=== PATIENT | female | born 1990 | race Caucasian/White ===

== ENCOUNTER → 2019-03-09 14:09 | Outpatient (CLI) | payer MEDICAID, SELFPAY ==
[2019-03-09 21:06] LABS: Chlamydia Trachomatis by PCR Negative (Negative); Neisserai gonorrhoeae by PCR Negative (Negative); Probe Check PASS; Sample Adequacy Control PASS; Specimen Processing Control PASS
[2019-03-14 15:22] LABS: HPV Reflexed? NOT INDICATED
== END ==
PROVIDERS: Visit Provider Obstetrics & Gynecology
DX: Z12.4 Encounter for screening for malignant neoplasm of cervix (principal); Z11.3 Encounter for screening for infections with a predominantly sexual mode of transmission
CPT/HCPCS: 87491; 87591; 87624; 88175; G0145

== ENCOUNTER 2020-06-30 17:39 | Emergency (ER) | payer MEDICAID, SELFPAY ==
[2020-06-30 17:40] VITALS: BP 152/95; PULSE 89; RESP 15; TEMP 36.6; O2SAT 98; BMI 36.4
[2020-06-30 18:42] VITALS: RESP 14
--- NOTE | 2020-06-30 18:56 | ED.VIS.GEN ---
History of Present Illness Chief Complaint: Laceration Informant: Patient Narrative: 1-year-old female presents for evaluation of a laceration to the third digit of the right hand. This was a knife on a hutton chain. States last tetanus was 2 years ago. Patient denies paresthesias. Patient has no loss of function of the digit. Past Medical History - Allergies and Home Meds Allergies/Adverse Reactions: Allergies clindamycin Allergy (Verified 06/30/20 17:43) Hives Primary Care Physician: Ken Dixon MD [Primary Care Provider] - Smoking Status: Never smoker Physical Exam Vital Signs/Narrative: Vital Signs Temp Pulse Resp BP Pulse Ox 06/30/20 18:42 14 06/30/20 17:40 97.9 F 89 15 152/95 H 98 ED Disposition - Plan for ED Patient: Disposition: Home or Assisted Living Instructions: ED Laceration Hand Referrals: Ken Dixon MD [Primary Care Provider] -
== END 2020-06-30 20:41 | disposition home or self-care (01) ==
PROVIDERS: Emergency Provider Student in an Organized Health Care Education/Training Program; PCP Family Medicine
DX: S61.212A Laceration without foreign body of right middle finger without damage to nail, initial encounter (principal); X58.XXXA Exposure to other specified factors, initial encounter
CPT/HCPCS: 99283

== ENCOUNTER → 2024-03-16 | Outpatient (CLI) | payer MEDICAID, SELFPAY ==
--- NOTE | 2024-03-16 16:20 | MRI_ITS ---
We are attempting to reach an attending provider to discuss findings. An addendum with communication details will be sent when the communication is complete. STUDY: MR Knee W/O Contrast 03/18/2024 4:17 PM REASON FOR EXAM: Female, 33 years old. assess for MCL sprain or MM tear TECHNIQUE: Standardized fat and water weighted pulse sequences were obtained in all 3 orthogonal planes. RIGHT COMPARISON: xr 4.1.24 FINDINGS: Normal medial meniscus. Normal hyaline cartilage of the medial femorotibial compartment. Abnormal serpiginous T2 signal in the distal comparison femur. Abnormal serpiginous T1 signal along the proximal tibia. The femoral and tibial signal abnormalities have the appearance of a geographic appearance. Normal medial collateral ligamentous complex (MCL). Normal distal semimembranosus, gracilis and semitendinosus tendons. Normal lateral meniscus. Normal hyaline cartilage of the lateral femorotibial compartment. Normal proximal tibiofibular articulation. Normal lateral collateral (fibular) ligament. Normal popliteus tendon. Normal biceps femoris tendon. Normal anterior cruciate ligament (ACL). Normal posterior cruciate ligament (PCL). Normal congruent patellofemoral articulation. Normal hyaline cartilage of the patellofemoral compartment. Normal medial and lateral patellar retinaculum. Normal quadriceps tendon. Normal patellar tendon. Normal Hoffa''s fat pad. There is no joint effusion. The soft tissues are unremarkable. The otherwise visualized osseous structures are unremarkable. 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 Electronically Signed: Chiki Mendoza MD at 16:23 EDT ,
== END | disposition home or self-care (01) ==
LOC: MRI 16:13
PROVIDERS: PCP Family Medicine; Referring Provider Orthopaedic Surgery Sports Medicine; Visit Provider Orthopaedic Surgery Sports Medicine
DX: M25.561 Pain in right knee (principal)
CPT/HCPCS: 73721

== ENCOUNTER 2024-04-16 11:00 | Outpatient (RCR) | payer MEDICAID, SELFPAY ==
--- NOTE | 2024-03-08 12:05 | HP.PTEVAL_ITS ---
Patient's Visit Information Visit Information Visit Information: FLAQUITO LAND is a 33 year old F referred to Physical Therapy by Dr. Vishal Caal MD with a diagnosis of R knee pain. Date of Evaluation: 03/08/24 Physical Therapist: Kip Haynes DPT Visit Plan Frequency: 2x /Week Duration: 4 Weeks Plan: 1) Start with quad strengthening isometrics progressing to concentric. Will need to start in [place] due to R foot being non WBing. 2) R knee ROM, HS stretching. *Pt. does have a R foot fracture where she is NWBing. She also has a diagnosis of conversion disorder which seems to effecting BLEs resulting in weakness, pt. has marked DF weakness. Subjective Subjective: Pt. is here today for her initial evaluation with diagnosis of R knee pain. Pt. has a fairly length recent PMH. Pt. was recently diagnosis of conversion disorder after having increased BLE weakness causing difficulty walking. She also recently fell in middle of January resulting in a R forefoot fracture. She was in a cast, but recently moved to a CAM bood for the last 3 weeks. She is to be limited WBing on her R foot per patient from podiatry. She also fell a few days before that resulting in a medial R knee injury. She reports high anxiety, and stress. She was heavily drinking to cope with this. She has recently stopped drinking. She reports that her R knee is bothering a lot and is awaiting an MRI. She is also to have a repeat Xray of her R foot in early March. 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 She reports 18K steps per day on average. She is still having issues with ankle strength in BLEs. Pt. is hopeful to get back to work and recreational activities without limitations. Pain R knee: Pain Intensity (Out of 10): 0 Pain Intensity Range: 5 Comment: 5/10 with movement Objective Objective: POSTURE: Pt. has slight flexed posture. Uses FWW for stability and to off load RLE. PALPATION: Pt. has tenderness along R knee medial joint line and along MCL region. No as much pain along popliteal region. NEURO: normal sensation and normal DTR of BLEs. ROM: R knee: 0-3-111deg, PROM: 0-0-117deg. Pt. does have difficulty with B ankle DF ROM, tightness noted in B calves. MMT: LLE: ankle DF 5#, PF 28#, knee: ext 31.2#, flexion 26.0#; hip: flexion 26.5# RLE: ankle: DF 3#, PF 18#; knee: ext 29.3#, flexion 20.9#; hip: flexion 15.7#, abd 13.8# GAIT: Pt. ambulates with FWW. Pt. attempted to reduce WBing through RLE, but still have marked WBing. Pt. does have difficulty with good initial contact on RLE, LLE unable to see due to CAM boot. Pt. has difficulty with DF during swing phase resulting in exaggerated hip flexion bilaterally. sit to stand: good mechanics. Bed mobility: good mechanics. Special Tests R Knee Alma - Meniscus: Positive R Knee Anterior Drawer - ACL: Negative Balance/Special Test Scores Lower Extremity Functional Score: 28 Goals Goal 1:: LTG: Pt. to be I with HEP for quad strengthening and R knee ROM. Goal Time Frame: 2-4 Weeks Goal 2:: LTG: Pt. to be able to ambulate without increase in R knee pain. Goal Time Frame: 4-6 Weeks Goal 3:: STG: Pt. to have increased R knee ROM to 0-0-130deg without increase in R knee pain. Goal Time Frame: 2 Weeks Goal 4:: STG: Pt. to ambulate with normal gait pattern without increase in symptoms. Goal Time Frame: 2-4 Weeks Rehabilitation Potential Physical Therapy Diagnosis: Pt. has signs and symptoms consistent with R knee pain. Pt. has a few things going on right now stemming from R foot fracture, R medial knee pain and conversion disorder diagnosis. She has marked R knee ROM loss secondary to pain at medial knee. She has some weakness, but not severe. She is currently non WBing on her R foot limiting some of our R LE strengthening. I would like her to work in PT on R quad strengthening, R knee ROM and decreasing symptoms. Rehabilitation Potential: Good Anticipated Interventions Patient/Client Instruction: Educate patient on: Condition, Plan of Care, Risk Factors and Benefits of Fitness Program For the Purpose of:: To improve decision making, To facilitate caregiver knowledge, To improve self management, To prevent re-injury and To improve ability to perform tasks related to life management Therapeutic Exercise to Include: Strength training, Power training, Coordination, Flexibilty training, Passive ROM and Active ROM For the Purpose of:: To decrease pain, To increase ROM, To improve nutrient delivery to tissue, To increase oxygenation perfusion, To improve muscle performance and motor function, To improve ability to perform ADL's, To increase tolerance to activity/condition/position, To improve performance and inde pendence with ADL's, To decrease level of supervision to perform tasks, To improve health of tissue, To decrease soft tissue restriction and To increase flexibility/ROM Text: Thank you for the opportunity to evaluate your patient. For Medicare and Medicare HMO plans, please review the plan of care and approve it. It will need to be FAXED BACK to us at [phone] for Medicare purposes. For Medicare only, by signing this I certify the plan of care. Please let me know if there are questions or concerns regarding this plan of ca re. Physician Signature: Date:
== END 2024-04-16 19:00 | disposition home or self-care (01) ==
LOC: PT 11:00
PROVIDERS: PCP Family Medicine; Referring Provider Orthopaedic Surgery Sports Medicine; Visit Provider Orthopaedic Surgery Sports Medicine
DX: M25.561 Pain in right knee (principal)
CPT/HCPCS: 97110; 97161

== ENCOUNTER 2025-08-01 16:34 | Emergency (ER) | payer MEDICAID, SELFPAY ==
[2025-08-01 16:34] VITALS: BP 135/77; PULSE 63; RESP 16; TEMP 36.8; O2SAT 100; BMI 38.7
--- NOTE | 2025-08-01 16:51 | EX.ED.DYSGE1 ---
HPI History of Present Illness Chief Complaint: Dizziness Detail of Chief Complaint: Acute vertigo Informant: patient Onset/Context/Timing Onset: Today and Hours Context: Sudden Onset Timing: Intermittent Quality: Patient stated her vision was off and she was spinning when she tilted her Location: [facility] office Current Severity: Mild (Feels nausea) Maximum Severity: Severe Worsened by: Tilting head back Relieved by: Remaining still Associated Symptoms Associated Symptoms: Nausea and vomiting x 1 Narrative Narrative: Patient is a 34-year-old G2, P1 Ab0 female who presents with abrupt onset of vertigo. This occurred when she tilts her head back after drinking water. She denied double vision blurred vision loss of vision. Denies ringing or ears or decreased hearing. She denies trouble speech or swallowing. She denies paresthesia, anesthesia or motor weakness. She does endorse frequency. She is , 21 weeks. She denies problems with balance or coordination. Prior similar symptoms: No Recent Illness/Hospitalization: No PFSH [facility] Medical History Avascular necrosis Right knee pain Home Medications ?Medication ?Instructions ?Recorded ?Last Taken ?Type amlodipine 2.5 mg tablet 2.5 mg PO DAILY 02/28/24 Unknown History calcium carbonate 260 mg PO DAILY 02/28/24 Unknown History cholecalciferol (vitamin D3) 10 10 mcg PO DAILY 02/28/24 Unknown History mcg (400 unit) capsule folic acid 1 mg tablet 1 mg PO DAILY 02/28/24 Unknown History gabapentin 100 mg capsule 100 mg PO DAILY 02/28/24 Unknown History thiamine HCl (vitamin B1) 50 mg 50 mg PO DAILY 02/28/24 Unknown History tablet diazepam 2 mg tablet (Valium) 2 mg PO TID 3 days #7 tabs 08/01/25 Unknown Rx Allergy/AdvReac Type Severity Reaction Status Date / Time clindamycin Allergy Hives Verified 08/28/24 10:53 lisinopril Allergy cough Verified 08/01/25 16:36 Social History household members: children Smoking Status: Former smoker alcohol intake: never ROS ROS ED Constitutional Constitutional ED: Denies chills, fever(s), subjective or sweats Eyes Eyes: Reports change in vision bilateral (My vision is off.); Denies blurry vision or diplopia ENT ENT ED: Reports other Details: Denies tinnitus. ; Denies ear pain, rhinorrhea or sore throat Cardiovascular Cardiovascular: Denies chest pain or palpitations Respiratory/Chest Respiratory/Chest: Denies cough, dyspnea or dyspnea on exertion Gastrointestinal Gastrointestinal: Reports nausea and vomiting; Denies abdominal pain or diarrhea Genitourinary Genitourinary ED: Reports urinary frequency; Denies dysuria or hematuria Musculoskeletal Musculoskeletal: Denies arthralgias or myalgias Integumentary Denies rash Neurologic Neurologic: Denies headache(s), paresthesias or weakness Endocrine Endocrinology: Denies cold intolerance or heat intolerance Hematologic/Lymphatic Hematologic/Lymphatic: Reports systems reviewed and no addt'l complaints, except as documented EXAM Physical Exam Const Vital Signs: 08/01/25 16:34 08/01/25 18:58 Temperature 98.2 F 98.2 F Temperature Source Oral Pulse Rate 63 84 Respiratory Rate 16 18 Blood Pressure 135/77 H 130/77 H Blood Pressure Mean 96 94 Pulse Ox 100 98 Oxygen Delivery Method Room Air Positive well nourished General Appearance ED: NAD HEENT Reports moist mucous membranes HEENT Narrative: Head is atraumatic normocephalic. Ears normal. Nares patent. Posterior pharynx normal. Eyes PERRL and EOMs intact bilaterally General Eye ED: Negative for pale conjunctiva or scleral icterus Neck no lymphadenopathy, supple and no JVD Resp normal respiratory effort Cardio regular rate and regular rhythm GI normal to inspection, nondistended, normoactive bowel sounds and non-tender; Negative for non-distended or hepatosplenomegaly GI Narrative: Fundus 1 fingerbreadth above the umbilicus. Palpation: soft Extremity normal to inspection Neuro oriented x3, CN's II-XII intact bilaterally and no sensory deficits noted Neuro Narrative: There is no dysmetria. The eye skew test was negative. [place]-Hallpike maneuver was positive. Psych mental status grossly normal Skin no rashes or lesions noted, no wounds and skin turgor normal MDM MDM MDM Narrative Medical decision making narrative: Patient with peripheral vertigo. Symptoms are not consistent nor is her exam consistent with central vertigo. In light of her having a positive [place]-Hallpike maneuver we will perform Zainab's maneuver. Since she complained of nausea with the [place]-Hallpike maneuver we will pretreat with Zofran and ODT prior to Zainab maneuver Treatment and Re-Evaluation :: [place]-Hallpike was positive. This was positive when patient went from flat to upright position. Zainab maneuver was performed. Patient had total resolution of her symptoms. When she was ambulated 50 minutes later she states she had some slight dizziness. In light of this we will discharge with prescription for Valium 2 mg 3 times daily for 3 days. Discharge Plan Triage Chief Complaint: Dizziness ED Provider: Get Mi Dx/Rx/DC Orders Clinical Impression: Benign paroxysmal positional vertigo due to bilateral vestibular disorder, Second trimester Instructions: ED BPV Vertigo Prescriptions: New diazepam [Valium] 2 mg tablet 2 mg PO TID 3 Days Qty: 7 0RF No Action thiamine HCl (vitamin B1) 50 mg tablet 50 mg PO DAILY amlodipine 2.5 mg tablet 2.5 mg PO DAILY folic acid 1 mg tablet 1 mg PO DAILY gabapentin 100 mg capsule 100 mg PO DAILY cholecalciferol (vitamin D3) 10 mcg (400 unit) capsule 10 mcg PO DAILY calcium carbonate 260 mg calcium (648 mg) tablet 260 mg PO DAILY Primary Care Provider: Vishal Barcenas Referrals: Vishal Barcenas DO [Primary Care Provider, Medical] - As Needed Print Language: Bruneian Disposition Disposition: Home, Self Care Discharge Date/Time: 08/01/25 18:59
[2025-08-01 18:58] VITALS: BP 130/77; PULSE 84; RESP 18; TEMP 36.8; O2SAT 98
== END 2025-08-01 18:59 | disposition home or self-care (01) ==
PROVIDERS: Emergency Provider Emergency Medicine; Visit Provider Emergency Medicine
DX: O99.891 Other specified diseases and conditions complicating pregnancy (principal); O09.522 Supervision of elderly multigravida, second trimester; Z87.891 Personal history of nicotine dependence; H81.10 Benign paroxysmal vertigo, unspecified ear; Z3A.21 21 weeks gestation of pregnancy; R35.0 Frequency of micturition
CPT/HCPCS: 99282